=== PATIENT | male | born 1990 | race Caucasian/White ===

== ENCOUNTER 2020-06-02 19:55 | Emergency (ER) | payer SELFPAY ==
[~2020-06-02] VITALS: Ht 188 cm; Wt 74.3 kg
[~2020-06-02 19:55] MED LIST: CITA40TA12 PO; DIAZ5TAB4 PO; GABA-827 PO; HYDR1TAB53 PO; NAPR-685 PO; ONDA4TAB13 SL; OXYC1TAB12 PO
[2020-06-02 22:05] VITALS: BP 139/80
== END 2020-06-02 22:09 | disposition home or self-care (01) ==
LOC: ED 22:06
DX: S60.051A Contusion of right little finger without damage to nail, initial encounter (principal); S60.222A Contusion of left hand, initial encounter; F17.210 Nicotine dependence, cigarettes, uncomplicated; X58.XXXA Exposure to other specified factors, initial encounter; Y93.89 Activity, other specified; Y92.009 Unspecified place in unspecified non-institutional (private) residence as the place of occurrence of the external cause; Y99.8 Other external cause status
CPT/HCPCS: 29130; 99406